=== PATIENT | female | born 1950 | race Hispanic/Latino ===

== ENCOUNTER 2018-07-17 09:07 | Emergency (ER) | payer MEDICARE ==
[~2018-07-17] VITALS: Ht 152.4 cm; Wt 71.7 kg
--- NOTE | 2018-07-17 09:51 | Diagnostic Imaging Report ---
EXAMINATION: CXR 2 VIEW - HOPD INDICATION: Cough. Congestion. COMPARISON: None FINDINGS: TUBES and LINES: None. LUNGS: Lungs are well inflated. Perihilar peribronchial hazy opacity could be due to bronchitis or possibly early viral pneumonia. There is no evidence of consolidated pneumonia or pulmonary edema. PLEURA: No pleural effusion or pneumothorax. HEART AND MEDIASTINUM: The cardiomediastinal silhouette is unremarkable. BONES AND SOFT TISSUES: No acute osseous lesion. Soft tissues are unremarkable. Metallic surgical hardware is seen in the right shoulder. UPPER ABDOMEN: No free air under the diaphragm. IMPRESSION: Perihilar peribronchial hazy opacity could be due to bronchitis or possibly early viral pneumonia. Signed by: Dr. Alcides Mota M.D. on 07/17/2018 9:47 AM
[2018-07-17 10:57] VITALS: BP 132/85
== END 2018-07-17 11:04 | disposition home or self-care (01) ==
LOC: FSED 09:07
DX: R05 Cough (principal); J20.9 Acute bronchitis, unspecified
CPT/HCPCS: 71046; 87400; 99283